=== PATIENT | female | born 1995 | race African-American/Black ===

== ENCOUNTER 2016-08-05 04:33 | Emergency (ER) | payer OTHER ==
[~2016-08-05] VITALS: Ht 154.9 cm; Wt 60.2 kg
[~2016-08-05 04:33] MED LIST: BACTRIM,SEPT1 TABLET PO; KEFLEX500 MG PO; MACROBID100 MG PO; PERCOCET 5/31 TABLET PO; PYRIDIUM200 MG PO
[2016-08-05] MEDS ORDERED: TRAMADOL HCL50 MG PO (05:46)
[2016-08-05 05:53] VITALS: BP 116/81
== END 2016-08-05 05:59 | disposition home or self-care (01) ==
LOC: EME 04:33
DX: G44.309 Post-traumatic headache, unspecified, not intractable (principal); S00.93XA Contusion of unspecified part of head, initial encounter; Y04.2XXA Assault by strike against or bumped into by another person, initial encounter; F17.200 Nicotine dependence, unspecified, uncomplicated
CPT/HCPCS: 70450; 99281; 99284